=== PATIENT | female | born 1960 ===

== ENCOUNTER 2022-01-22 10:16 | Emergency (ER) | payer SELFPAY ==
[~2022-01-22] VITALS: Ht 152.4 cm; Wt 76.8 kg
[2022-01-22 10:23] VITALS: BP 162/90
== END 2022-01-22 11:58 | disposition left against medical advice (07) ==
LOC: ER 10:17
DX: M79.10 Myalgia, unspecified site (principal); Z53.21 Procedure and treatment not carried out due to patient leaving prior to being seen by health care provider